=== PATIENT | female | born 2000 ===

== ENCOUNTER 2021-11-20 09:13 | Outpatient (CLI) | payer OTHER | END 2021-11-20 10:24 | disposition home or self-care (01) | LOC: PRENATAL 09:13 | PROVIDERS: ATTEND Obstetrics & Gynecology Maternal & Fetal Medicine | DX: O36.80X0 Pregnancy with inconclusive fetal viability, not applicable or unspecified (principal); Z36.0 Encounter for antenatal screening for chromosomal anomalies; O99.210 Obesity complicating pregnancy, unspecified trimester; O34.10 Maternal care for benign tumor of corpus uteri, unspecified trimester; Z3A.14 14 weeks gestation of pregnancy ==

== ENCOUNTER 2022-01-06 13:18 | Outpatient (CLI) | payer OTHER | END 2022-01-06 14:21 | disposition home or self-care (01) | LOC: PRENATAL 13:18 | PROVIDERS: ATTEND Obstetrics & Gynecology Maternal & Fetal Medicine | DX: O35.9XX0 Maternal care for (suspected) fetal abnormality and damage, unspecified, not applicable or unspecified (principal); O35.3XX0 Maternal care for (suspected) damage to fetus from viral disease in mother, not applicable or unspecified; O99.210 Obesity complicating pregnancy, unspecified trimester; Z14.8 Genetic carrier of other disease; Z3A.21 21 weeks gestation of pregnancy ==

== ENCOUNTER 2022-04-16 18:10 | Outpatient (CLI) | payer OTHER ==
[2022-04-16] MEDS ORDERED: ECOTRIN81 MG PO (18:38)
[2022-04-16] MEDS ORDERED: PRENATAL TABLE1 EAC1 PO (18:38)
[2022-04-16] MEDS ORDERED: PROFERRIN-FORT1 EACH PO (18:39)
== END 2022-04-17 15:52 | disposition home or self-care (01) ==
LOC: OBS/DEL 18:10
PROVIDERS: ATTEND Obstetrics & Gynecology
DX: O47.03 False labor before 37 completed weeks of gestation, third trimester (principal); Z3A.36 36 weeks gestation of pregnancy; Z91.013 Allergy to seafood